=== PATIENT | female | born 1990 ===

== ENCOUNTER 2021-11-13 12:31 | Outpatient (CLI) | payer OTHER ==
--- NOTE | 2021-12-03 09:54 | Mammography Report ---
DIGITAL DIAGNOSTIC MAMMOGRAM CONVENTIONAL, 11/13/2021 CLINICAL INFORMATION / INDICATION: Patient presents for evaluation of an area of palpable concern in the right breast as well as right yellow nipple discharge. TECHNIQUE: Digital bilateral mammographic imaging was performed. Spot compression views were obtaine d. COMPARISON: Prior mammogram 11/10/2018 FINDINGS: Breast Density: The breasts are heterogeneously dense, which may obscure small masses. No dominant mass, suspicious calcifications or architectural distortion in the left breast. There is developing focal asymmetry in the anterior subareolar right breast corresponding with the si te of palpable concern, measuring up to approximately 3 cm in extent. There is also a possible area o f architectural distortion seen in the posterior upper-outer quadrant of the right breast, best seen on CC view. In addition, there is new right nipple inversion. IMPRESSION: 1. There is developing focal asymmetry corresponding with the site of palpable concern in the right b reast, and a possible area of architectural distortion in the upper-outer quadrant of the right breas t. Additionally, there is new right nipple inversion. Recommend patient return for targeted right abdoul ast ultrasound for further evaluation of these findings. Follow up recommendation: Ultrasound BI-RADS Category 0: INCOMPLETE. Needs additional imaging evaluation and/or prior mammograms for regina rivera. A "normal" or negative report should not discourage follow up or biopsy of a clinically significant f inding. A written summary of these findings will be mailed to the patient. The patient will be entered into a mammography reporting system which will generate a reminder letter for the patient's next appointmen t at the appropriate interval. According to the [employer], yearly mammograms are recommended starting at age 40 and continuing as long as a woman is in good health. Breast MRI is recommended for women with an gorge roximately 20-25% or greater lifetime risk of breast cancer, including women with a strong family his tory of breast or ovarian cancer and women who have been treated for Hodgkin's disease. Signer Name: Holly Tong MD Signed: 12/03/2021 9:49 AM Workstation Name: [id number]
== END 2021-11-13 12:32 | disposition home or self-care (01) ==
LOC: MAMMO 12:31
PROVIDERS: ATTEND Specialist
DX: N64.52 Nipple discharge (principal); N63.10 Unspecified lump in the right breast, unspecified quadrant
CPT/HCPCS: 77066